=== PATIENT | female | born 1985 | race Caucasian/White ===

== ENCOUNTER 2017-01-18 15:05 | Emergency (ER) | payer BC, MEDICAID ==
[~2017-01-18] VITALS: Ht 165.1 cm; Wt 88.0 kg
[~2017-01-18 15:05] MED LIST: AZIT500T5 PO; CIPR500T4 PO; FLUC150T17 PO; HYDR-3498 PO; IBUP-1542 PO; NORG1TAB54 PO
[2017-01-18 15:08] VITALS: Ht 165.1 cm; Wt 88.0 kg
--- NOTE | 2017-01-18 16:39 | RADRPT ---
PROCEDURE: US OB. CLINICAL INDICATION: 31-year-old female with vaginal bleeding. TECHNIQUE: Transabdominal and transvaginal views of the pelvis are available for review. COMPARISON: No prior studies are available for comparison. FINDINGS: The uterus is identified near midline and contains a gestational sac measuring 4 x 1.7 x 3.3 cm. Me an sac diameter is 3 cm which calculates to a weeks 0 days. Placenta: Circumferential grade 0 with no subchorionic hemorrhage identified. Presentation:[place]-rump length:2.4 cm: 9 weeks 0 days. heart rate:174 beats per minute. Amniotic fluid volume: Normal. Ultrasound estimated gestational age: There is a left ovarian cyst measuring 4.7 x 2.6 x 2.6 cm. The left ovary measures 5.9 x 4.7 x 4.4 cm with normal blood flow. The right ovary is not visualized. No adnexal mass lesion is seen. There is no free fluid. IMPRESSION: 1. Single viable fetus is identified. AUA: 8 weeks 4 days plus or minus 0 weeks 4 days. FAUSTO (AUA): August 26, 1997 AT. 2. Left ovarian cyst measuring 4.7 x 2.6 x 2.6 cm with normal blood flow to the left ovary. The rig ht ovary is not visualized. RPTAT:AAJJ Physician Gonsalo Date Time Electronically viewed and signed by Physician Gonsalo on 01/18/2017 16:39 /
[2017-01-18 16:40] LABS: ADD SCAN DIFF NO
[2017-01-18 16:43] LABS: BASOPHILS % 0.4 % (0.0-2.0); EOSINOPHILS # 0.1 10^3/ul (0.0-0.5); EOSINOPHILS % 1.1 % (0.0-7.0); HEMATOCRIT 37.3 % (37.0-47.0); HEMOGLOBIN 13.4 g/dl (12.0-16.0); LYMPHOCYTES # 2.7 10^3/ul (0.8-2.9); LYMPHOCYTES % 24.1 % (15.0-51.0); MEAN CORPUSCULAR HEMOGLOBIN 30.7 pg (29.0-33.0); MEAN CORPUSCULAR HGB CONC 35.9 g/dl (32.0-37.0); MEAN CORPUSCULAR VOLUME 85.6 fl (82.0-101.0); MEAN PLATELET VOLUME 9.6 fl (7.4-10.4); MONOCYTE # 0.7 10^3/ul (0.3-0.9); MONOCYTES % 6.5 % (0.0-11.0); NEUTROPHIL # 7.7 10^3/ul (1.6-7.5); NEUTROPHILS % 67.5 % (39.0-77.0); PLATELET COUNT 314 10^3/UL (140-415); RED BLOOD COUNT 4.36 10^6/ul (4.20-5.40); RED CELL DISTRIBUTION WIDTH 11.7 % (11.5-14.5); WHITE BLOOD COUNT 11.4 10^3/ul (4.8-10.8)
[2017-01-18 16:44] LABS: ADD UMIC YES; UR BILIRUBIN (Dip) NEGATIVE (NEGATIVE); UR BLOOD (Dip) 3+ (NEGATIVE); UR GLUCOSE (Dip) NEGATIVE (NEGATIVE); UR KETONES (Dip) NEGATIVE (NEGATIVE); UR LEUKOCYTE ESTERASE (Dip) TRACE (NEGATIVE); UR NITRITE (Dip) NEGATIVE (NEGATIVE); UR TOTAL PROTEIN (Dip) NEGATIVE (NEGATIVE); UR UROBILINOGEN (Dip) 0.2 E.U./dL (0.1-1.0)
[2017-01-18 17:01] LABS: UR CLARITY HAZY (CLEAR); UR COLOR DARK YELLOW (YELLOW)
[2017-01-18 17:02] LABS: UR BACTERIA MODERATE; UR SQUAMOUS EPITHELIAL CELL MODERATE
[2017-01-18] MEDS ORDERED: CEPH-443 PO (17:31)
--- NOTE | 2017-01-18 17:47 | ERD ---
ER Documentation Chief Complaint Date/Time DATE: 01/18/17 TIME: 17:46 Chief Complaint 9 WEEKS , BROWNISH RED DISCHARGE WITH CRAMPING HPI 31-year-old female who is a at approximately 9 weeks who presents with lower abdominal cramping and some spotting for approximately 24 hours. She denies any fevers chills nausea or vomiting, no diarrhea, no dysuria urgency or frequency. Symptoms are mild to moderate. ROS All systems reviewed and are negative except as per history of present illness. Medications Home Meds Active Scripts Cephalexin* (Keflex*) 500 Mg Capsule, 500 MG PO BID for 7 Days, CAP Prov:ARIS ORELLANA MD 01/18/17 Ciprofloxacin Hcl* (Ciprofloxacin Hcl*) 500 Mg Tablet, 500 MG PO BID for 3 Days , TAB Prov:AMARI HUSAIN PA-C 03/01/15 Fluconazole* (Diflucan*) 150 Mg Tablet, 150 MG PO ONCE, #1 TAB Prov:AMARI HUSAIN PA-C 03/01/15 Ibuprofen* (Motrin*) 600 Mg Tab, 600 MG PO Q6, #20 TAB Prov:AMARI HUSAIN PA-C 03/01/15 Hydrocodone Bit-Acetaminophen* ([place]*) 5-325 Mg Tab, 1 TAB PO Q6 Y for PAIN, # 10 TAB Prov:AMARI HUSAIN PA-C 03/01/15 Reported Medications Norgestimate-Ethinyl Estradiol (Ortho Tri-Cyclen Lo) 0.025-0.18 Mg Tablet, 1 TAB PO DAILY, TAB 06/03/14 Azithromycin* (Azithromycin*) 500 Mg Tablet, 500 MG PO TID PRN: GENITAL HERPES 03/08/13 Allergies Allergies: Coded Allergies: No Known Allergy (Unverified , 03/08/13) PMhx/Soc History of Surgery: Yes (Cholecystectomy) Anesthesia Reaction: No Hx Neurological Disorder: No Hx Respiratory Disorders: No Hx Cardiac Disorders: No Hx Psychiatric Problems: No Hx Miscellaneous Medical Probl: Yes (HSV1, GERD) Hx Alcohol Use: Yes (socially) Hx Substance Use: No Hx Tobacco Use: No Smoking Status: Never smoker Physical Exam Vitals Vital Signs Date Time Temp Pulse Resp B/P Pulse Ox O2 Delivery O2 Flow Rate FiO2 01/18/17 15:08 99.4 91 18 136/81 99 Physical Exam General: Well developed, well nourished, no acute distress Head: Normocephalic, atraumatic. Eyes: Pupils equally reactive, EOM intact ENT: Moist mucous membranes Neck: Supple, no lymphadenopathy Respiratory: Lungs clear bilaterally, no distress Cardiovascular: RRR, no murmurs, rubs, or gallops Abdominal: Soft, non-tender, non-distended, no peritoneal signs : Deferred MSK: No edema, no unilateral swelling, 5/5 strength Neurologic: Alert and oriented, moving all extremities, normal speech, no focal weakness, no cerebellar signs Skin: No rash Psych: Normal mood. Result Diagram: 01/18/17 1630 Results 24 hrs Laboratory Tests Test 01/18/17 16:28 01/18/17 16:30 Urine Color DARK YELLOW Urine Clarity HAZY Urine pH 6.0 Urine Specific [place] <=1.005 Urine Ketones NEGATIVE Urine Nitrite NEGATIVE Urine Bilirubin NEGATIVE Urine Urobilinogen 0.2 E.U./dL Urine Leukocyte Esterase TRACE Urine Microscopic RBC 5-10/HPF Urine Microscopic WBC 5-10/HPF Urine Squamous Epithelial Cells MODERATE Urine Bacteria MODERATE Urine Hemoglobin 3+ Urine Glucose NEGATIVE% Urine Total Protein NEGATIVE White Blood Count 11.410^3/ul Red Blood Count 4.3610^6/ul Hemoglobin 13.4g/dl Hematocrit 37.3% Mean Corpuscular Volume 85.6fl Mean Corpuscular Hemoglobin 30.7pg Mean Corpuscular Hemoglobin Concent 35.9g/dl Red Cell Distribution Width 11.7% Platelet Count 62834^3/UL Mean Platelet Volume 9.6fl Neutrophils % 67.5% Lymphocytes % 24.1% Monocytes % 6.5% Eosinophils % 1.1% Basophils % 0.4% Nucleated Red Blood Cells % 0.0/100WBC Neutrophils # 7.710^3/ul Lymphocytes # 2.710^3/ul Monocytes # 0.710^3/ul Eosinophils # 0.110^3/ul Basophils # 0.010^3/ul Nucleated Red Blood Cells # 0.010^3/ul Procedures/MDM EKG, MONITORS, & DIAGNOSTIC IMAGING: Pelvic ultrasound: IMPRESSION: 1. Single viable fetus is identified. AUA: 8 weeks 4 days plus or minus 0 weeks 4 days. FAUSTO (AUA): August 26, 1997 AT. 2. Left ovarian cyst measuring 4.7 x 2.6 x 2.6 cm with normal blood flow to the left ovary. The right ovary is not visualized. RPTAT:AAJJ LAB INTERPRETATION: Rh status: Positive, no indication for RhoGam MEDICAL DECISION MAKING: The patient's symptoms are most consistent with acute threatened miscarriage. She exhibits no signs or symptoms concerning for acute ectopic however this needs to be evaluated here in the emergency room and be ruled out. In addition I doubt other acute intra-abdominal process such as ovarian cyst, ovarian torsion, acute appendicitis, colitis, kidney stone, acute pancreatitis or acute cholecystitis. The patient will require further evaluation, laboratory testing and diagnostic imaging to evaluate and rule out acute ectopic . Patient will also require prompt outpatient [facility] follow-up. We discussed this at the bedside. We had an in-depth conversation regarding the diagnosis of threatened miscarriage, the prevalence of this process, the expected management as well as return precautions. ER COURSE: Asymptomatic bacteriuria and pyuria, patient started on Keflex. Close [facility] follow-up recommended. Patient informed of ultrasound imaging and cyst, no evidence of torsion. I kept the patient and/or family informed of laboratory and diagnostic imaging results throughout the emergency room course. DISPOSITION PLAN: We discussed follow up with the patient's primary care doctor within 24 to 48 hours as needed. We also discussed return to the emergency room for worsening symptoms or worsening condition. Close outpatient [facility] follow-up for repeat hCG value in 2-3 days and ultrasound as needed. Discharge medications: Keflex Departure Diagnosis: Primary Impression: Threatened miscarriage Additional Impression: Asymptomatic bacteriuria during Condition: Stable Patient Instructions: Possible Miscarriage (Threatened ) Referrals: [facility] [place] [id number] [facility] [address] [place], [place] [phone] [address]ABUSLEME ALAN [address] [place] [place] [phone] [address] [place] [address] [place] [phone] [address] [place] [address] [facility] [facility] [address] [address] [address] [facility] [place] [id number] [facility] [address] [place] [id number] [facility] [id number] [address]MA [address] [facility] [address] [address] [place], [place] [address] [facility]. [address], [facility] [address] [address] [facility] [address] [place] [address] Additional Instructions: Call your primary care doctor TOMORROW for an appointment during the next 1 WEEK.Tell the junior legal secretary that you were referred from this facility.See the doctor sooner or return here if your condition worsens before your appointment time. ARIS ORELLANA MD Jan 18, 2017 17:47
== END 2017-01-18 18:43 | disposition home or self-care (01) ==
LOC: FTE 15:05
DX: O20.0 Threatened abortion (principal); O23.41 Unspecified infection of urinary tract in pregnancy, first trimester; R10.30 Lower abdominal pain, unspecified; Z3A.09 9 weeks gestation of pregnancy
CPT/HCPCS: 76801; 81001; 84702; 85025; 86900; 86901